=== PATIENT | female | born 1990 ===

== ENCOUNTER 2017-01-11 06:09 | Inpatient (IN) ==
[2017-01-11] MEDS ORDERED: LACTATED RINGERS 500 ML IV PRN (06:29)
[2017-01-11] MEDS ORDERED: TERBUTALINE 1 MG/1 ML VIAL SUBCUT PRN (06:29)
[2017-01-11] MEDS ORDERED: ONDANSETRON 4 MG/2 ML VIAL IV PRN ×2 (06:29→18:48)
[2017-01-11] MEDS ORDERED: MEPERIDINE 50 MG/1 ML VIAL IV PRN (06:29)
[2017-01-11] MEDS ORDERED: OXYTOCIN/LR 20 UNIT/1,000 ML BAG IV SCH (06:30)
[2017-01-11] MEDS: LACTATED RINGERS 1,000 ML IV SCH ×2 (06:50→11:59)
[2017-01-11 07:30] LABS: Basophils % 0.2 % (0.0-0.8); Eosinophils % 0.5 % (0.00-10.9); Hematocrit 42.2 VOL% (35.7-47.0); Hemoglobin 14.4 GM/DL (12.0-16.0); Immature Granulocytes % 0.3 %; Immature Granulocytes Absolute 0.02 #; Lymphocytes # 1.8 10*3/uL (1.4-4.0); Lymphocytes % 26.6 % (21.3-54.2); Mean Corpuscular HGB Conc 34.1 GM/DL (32-36); Mean Corpuscular Hemoglobin 30 PG (27-34); Mean Corpuscular Volume 88.8 FL (87-102); Mean Platelet Volume 11.6 FL (9.6-12.0); Monocytes # 0.4 10*3/uL (0.11-0.8); Monocytes % 6.1 % (1.7-12.7); Neutrophils # 4.4 10*3/uL (1.4-7.4); Neutrophils % 66.3 % (38.7-73.9); Platelet Count 199 T/CUMM (130-400); Red Blood Count 4.75 MC/CUMM (3.8-5.5); Red Cell Distribution Width 13.5 % (9.3-17.3); White Blood Count 6.6 T/CUMM (4-12)
--- NOTE | 2017-01-11 09:21 | OB/GYN History & Physical ---
History of Present Illness Chief complaint: For elective induction due to term History of present illness: Ms. Cline is a 26 year old female 2 para 1 living 1. Her PATIENCE is 01/15 for an estimated gestational age of 39 weeks and 2 days. The patient presents for elective induction of labor due to term . The risk and benefits of been thoroughly discussed with this patient and significant other, plan of care has been discussed with Dr. Henderson and all parties are in agreement plan. The patient received her care at the [facility] and the [facility] and she received routine care, her course was uneventful. labs: She is O+, rubella is immune, serologies nonreactive, hepatitis B negative, HIV negative, GBS culture is negative. Review of systems is negative with exception of the above. The patient has had a previous vaginal delivery of a liveborn that weighed 6 lbs. 9 oz. and she reported no complications with that . Home Medications Medication Instructions Recorded Confirmed Type Vits #90/Iron Fum/FA 1 tablet PO DAILY 01/11/17 01/11/17 History [ Formula Tablet] Allergies Allergy/AdvReac Type Severity Reaction Status Date / Time cephalexin [From Keflex] Allergy Unknown/Unable Verified 01/11/17 06:26 to obtain 12 point system: reviewed and no additional remarkable complaints except as stated Medical,Surgical,& Family Hx - Medical History Medical History: noncontributory Reproductive: No history of: Ectopic , Complication - Surgical History Surgical History: noncontributory Reproductive Surgeries: Patient denies;: Section - Family History Family History: Reports;: Family Diabetes (pgm), Family Heart Disease (mgm), Family Hypertension (pgm), Family Stroke (pgm) Denies;: Family Anesthesia Reaction, Family Hematology, Family Psychiatric Problems - Social History Smoking Status: Never smoker Frequency of Alcohol Use: None Type of Drug Use: None Marital Status: Single Lives With:: Significant Other Functional capacity: independent ambulation Exam ANIMAL CONTROL OFFICER - Constitutional General appearance: no acute distress - Antepartum / Post Antepartum Exam Cervix - Dilatation: 3 cm Effacement: 70% Station: -2 Rupture: Intact Presentation: Vertex Heart Rate: 140 Abdomen obstetrics: Present: bowel sounds normal Vagina: Present: normal moisture, discharge Uterus exam: Present: enlarged Anus/Rectum: Present: normal perianal skin - Respiratory Respiratory exam: Present: clear to auscultation bilaterally - Cardiovascular Cardiovascular exam: Present: regular rate and rhythm - GI/Abdominal GI/Abdominal exam: Present: normal bowel sounds, soft - Extremities Exam Extremities exam: Present: normal inspection - Back Exam Back exam: Present: normal inspection - Neurological Exam Neurological exam: Present: alert, oriented X3 - Psychiatric Psychiatric exam: Present: normal affect, normal mood - Skin Skin exam: Present: normal color, warm Assessment and Plan (1) Term Status: Acute Assessment and plan: Admit IV fluids IV Pitocin per protocol Artificial rupture membranes when appropriate Epidural anesthesia if desired Internal monitors if indicated Anticipate Current Visit: Yes Results - Labs CBC & BMP: 01/11/17 07:05
[2017-01-11] MEDS ORDERED: LACTATED RINGERS 1,000 ML IV ONE (09:39)
[2017-01-11] MEDS ORDERED: FAMOTIDINE 20 MG/2 ML VIAL IV ONE (09:39)
[2017-01-11] MEDS ORDERED: ePHEDrine 50 MG/ML AMP IV PRN (09:39)
[2017-01-11] MEDS ORDERED: fentaNYL 2 MCG/ROPIV 0.2% EPID 150 ML EPIDURAL SCH (09:39)
[2017-01-11] MEDS ORDERED: diphenhydrAMINE 50 MG/1 ML VIAL IV PRN (09:39)
[2017-01-11] MEDS ORDERED: CITRIC ACID/SODIUM CITRATE 30 ML UDCUP PO ONE (09:39)
[2017-01-11 14:00] LABS: Apearance,Urine CLEAR (Clear); Bilirubin,Urine Negative (Negative); Blood, Urine Negative (Negative); Glucose,Urine (UA) Negative (Negative); Ketones,Urine Negative (Negative); Mucus,Urine Occasional /LPF (Occasional); Nitrite,Urine Negative (Negative); Protein,Urine Negative; RBC,Urine <1 /HPF (0-4); Urine Color Yellow (Yellow); Urine Specific Gravity 1.006 (1.001-1.035); Urine Urobilinogen < 2.0 EU/DL (0.2-1.0); WBC,Urine <1 /HPF (0-6)
[2017-01-11] MEDS ORDERED: LIDOCAINE 1% 50 ML VIAL ONE (18:19)
[2017-01-11] MEDS ORDERED: miSOPROStol 200 MCG TABLET ONE (18:19)
[2017-01-11 18:37] LABS: Cord Arterial Blood HCO3 24.7 MMOL/L
[2017-01-11 18:40] LABS: Cord Venous Blood HCO3 22.9 MMOL/L; Cord Venous Blood PCO2 54.1 MMHG; Cord Venous Blood PO2 26.6 MMHG
--- NOTE | 2017-01-11 18:47 | Event Note ---
Delivery note Stage I Artificial rupture membranes IUPC IV Pitocin Epidural anesthetic heart tones category 1 with variable decelerations, Pitocin was discontinued for approximately an hour Restarted and patient continues to have a normal pattern category 1. Stage II LML episiotomy Vacuum extraction 2 with 1 pop-off Nuchal cord 2 Patient's knees were placed in the knee chest position a suprapubic pressure was applied The anterior shoulder was delivered without complications was delivered and passed to the nurses in attendance. Cord blood and cord gas was obtained Delivery time was 1825 Stage III Placenta was delivered without any complication 182 3 cord vessels Estimated blood loss was 300 cc Episiotomy was repaired without complications #2-0 Vicryl and 3-0 chromic Mother stable Apgars were 3 at 1 minute and 8 at 5 minutes Narcan was also given as well.
[2017-01-11] MEDS ORDERED: OXYTOCIN/LR 20 UNIT/1,000 ML BAG IV ONE (18:48)
[2017-01-11] MEDS ORDERED: BENZOCAINE 20%/MENTHOL 0.5% SPRAY 56 GM CAN TOP PRN (18:48)
[2017-01-11] MEDS ORDERED: MEASLES/MUMPS/RUBELLA VACCINE 0.5 ML VIAL SUBCUT ONE (18:48)
[2017-01-11] MEDS ORDERED: WITCH HAZEL PADS 100/JAR TOP PRN (18:48)
[2017-01-11] MEDS ORDERED: LANOLIN 50% CREAM 0.3 OZ TUBE TOP PRN (18:48)
[2017-01-11] MEDS ORDERED: ACETAMINOPHEN 325 MG TABLET PO PRN (18:48)
[2017-01-11] MEDS ORDERED: HYDROCORTISONE 2.5% RECTAL CREAM 30 GM TUBE TOP PRN (18:48)
[2017-01-11] MEDS ORDERED: BISACODYL 10 MG SUPP RECTAL PRN (18:48)
[2017-01-11] MEDS ORDERED: oxyCODONE/ACETAMINOPHEN 5-325 MG TABLET PO PRN ×2 (18:48)
[2017-01-11] MEDS ORDERED: RHO(D) IMMUNE GLOBULIN 300 MCG SYRINGE IM ONE (18:48)
[2017-01-11] MEDS ORDERED: DIPH/TET/ACEL PERT BOOSTER VACCINE 0.5 ML VIAL IM ONE (18:48)
[2017-01-11] MEDS: DOCUSATE SODIUM 100 MG CAPSULE PO SCH (21:45)
[2017-01-12] MEDS: IBUPROFEN 800 MG TABLET PO PRN ×3 (01:59→22:22)
[2017-01-12 06:03] LABS: Basophils % 0.2 % (0.0-0.8); Eosinophils % 0.2 % (0.00-10.9); Hematocrit 34.7 VOL% (35.7-47.0); Immature Granulocytes % 0.7 %; Immature Granulocytes Absolute 0.09 #; Lymphocytes # 2.1 10*3/uL (1.4-4.0); Lymphocytes % 16.3 % (21.3-54.2); Mean Corpuscular Hemoglobin 31 PG (27-34); Mean Corpuscular Volume 89.7 FL (87-102); Mean Platelet Volume 12.2 FL (9.6-12.0); Monocytes # 0.7 10*3/uL (0.11-0.8); Monocytes % 5.1 % (1.7-12.7); Neutrophils % 77.5 % (38.7-73.9); Red Blood Count 3.87 MC/CUMM (3.8-5.5); Red Cell Distribution Width 13.6 % (9.3-17.3)
[2017-01-12 06:16] LABS: Hemoglobin 11.8 GM/DL (12.0-16.0); Platelet Count 143 T/CUMM (130-400); White Blood Count 12.9 T/CUMM (4-12)
--- NOTE | 2017-01-12 07:28 | Anesthesia Post-Op ---
Anesthesia Post OP - Post Ansesthetic Evaluation Patient seen in post op: Yes Resp: within normal limits CV: within normal limits Mental: within normal limits Temp: within normal limits [id number]: within normal limits Nausea and Vomiting: within normal limits Pain: within normal limits
--- NOTE | 2017-01-12 08:54 | Physician Query Form ---
CLICK EDIT DOCUMENT TO SELECT QUERY ANSWER --> OK --> SIGN Hali Jean RN Clinical System Configuration Specialist W) [phone] (f) [phone] [email or web address] PROVIDERS: Make your selection(s) from the choices in EACH section by typing an "x" and enter comments in the comment section. Please use your independent medical judgment in providing your response. This request does not imply that any particular answer is desired or expected. CLINICAL INDICATORS: (Providers should not edit this section) Based on documentation of "Stage II LML episiotomy. Vacuum extraction x2 with one pop off" Please clarify the reason for vacuum assisted delivery Based on the above, could you clarify the appropriate diagnosis, if significant , that supports the above abnormalities and additional evaluation, monitoring, and/or treatment rendered: ( ) distress ( ) Maternal exhaustion ( ) Labor complication ( ) Attempted or failed delivery ( ) Other, please specify: ( ) Clinically unable to determine COMMENTS: PLEASE ALSO DOCUMENT RESPONSE IN PROGRESS NOTES AND/OR DISCHARGE SUMMARY Use of terms such as suspected, likely, or probable (associated with a specific diagnosis that is being evaluated, monitored, or treated as if it exists) are acceptable and can be restated in the discharge summary if not ruled out. MTDD
--- NOTE | 2017-01-12 14:39 | Progress Note ---
Family Medicine PN Sub Interval history: day #1 Status post vaginal Uterus is nice and firm, nontender Extremities well with no limits and neurologic grossly intact Assessment and plan patient will be discharged in the a.m. Exam (Progress Note) - Constitutional Vitals: Period Temp Pulse Resp BP Sys/Snyder Pulse Ox Last 24 Hr 97.0 F-97.9 F 62-97 18-20 106-147/58-89 97-98 Results - Labs CBC & BMP: 01/12/17 05:51 Quality Measures - VTE Contraindication to Pharmacological VTE Prophylaxis: Clinical assessment deems Pt at low risk, no prophalaxis needed
[2017-01-12] MEDS: DOCUSATE SODIUM 100 MG CAPSULE PO SCH ×2 (16:27→20:52)
[2017-01-13] MEDS: IBUPROFEN 800 MG TABLET PO PRN (04:40)
[2017-01-13 07:38] VITALS: BP 126/71
[2017-01-13] MEDS: DOCUSATE SODIUM 100 MG CAPSULE PO SCH (08:54)
--- NOTE | 2017-01-13 11:50 | Discharge Summary ---
Hospital Course - Hospital Course Hospital Course: Second day from a vaginal delivery Abdomen soft and nontender External genitalia were normal limits Extremities well within normal limits and neurologic grossly intact Patient will be discharged today in follow-up our office in 6 weeks Specialty Discharge - Follow Up or Referrals Discharge Plan - Discharge Data Condition at Discharge: Stable Discharge Diet: advance to your usual diet Activity: resume usual activities as tolerated Hygiene: may shower Driving: no restrictions Contact your physician if you experience:: fever over 101, Bleeding - Discharge Medications New Hydrocortisone 2.5% Rectal Cr [Anusol HC Cream] 1 applic TOP QID PRN #10 applic PRN Reason: Hemorrhoids Ibuprofen Tab [Motrin Tab] 800 mg PO Q6H PRN #30 tablet PRN Reason: Pain Moderate (4-7) oxyCODONE/ACETAMINOPHEN 5-325 [Percocet 5-325] 1 tablet PO Q6H PRN #14 tablet PRN Reason: Pain Severe (8-10) No Action Vits #90/Iron Fum/FA [ Formula Tablet] 1 tablet PO DAILY - Follow Up or Referral - Forms/Instructions Instructions: Perineal Care (DC), Vaginal Delivery (DC), Bleeding (DC) Exam - Constitutional Vitals: Period Temp Pulse Resp BP Sys/Snyder Pulse Ox Last 24 Hr 96.3 F-97.8 F 63-81 16-20 112-126/59-79 97-99 DS: Provider Date of admission: 01/11/17 06:29 Primary care physician: Saritha Guo MD Attending physician on admission: Tai Henderson MD Consults: 01/11/17 06:29 Consult to Anesthesiology [CONS] Routine Consulting Provider: Reason for Anesthesiology: Epidural Consult Comment: Epidural for pain managment 01/11/17 18:48 Consult to Porcelain Finish Sprayer [CONS] Routine Consult Porcelain Finish Sprayer: Breast Feeding Discharging clinician: Tai Henderson MD
== END 2017-01-13 13:20 | disposition home or self-care (01) | DRG 775 ==
LOC: N.LDOUT 06:09 → N.LD 06:10 → N.OB 01-12 16:33
PROVIDERS: ADMIT Obstetrics & Gynecology; ATTEND Obstetrics & Gynecology

== ENCOUNTER 2017-11-24 13:51 | Inpatient (IN) ==
[2017-11-24] MEDS ORDERED: ONDANSETRON 4 MG/2 ML VIAL IV PRN (14:11)
[2017-11-24] MEDS ORDERED: BUTORPHANOL 2 MG/ML VIAL IV PRN (14:11)
[2017-11-24] MEDS: LACTATED RINGERS 1,000 ML IV SCH ×2 (14:37→16:54)
[2017-11-24] MEDS ORDERED: hydrOXYzine HCL 25 MG/1 ML VIAL IM PRN (14:40)
[2017-11-24] MEDS ORDERED: PROMETHAZINE 25 MG/1 ML VIAL IM ONE (14:40)
[2017-11-24] MEDS ORDERED: ePHEDrine 50 MG/ML AMP IV PRN (14:40)
[2017-11-24] MEDS ORDERED: diphenhydrAMINE 50 MG/1 ML VIAL IV PRN ×2 (14:40)
[2017-11-24] MEDS ORDERED: CITRIC ACID/SODIUM CITRATE 30 ML UDCUP PO ONE (14:40)
[2017-11-24] MEDS ORDERED: FAMOTIDINE 20 MG/2 ML VIAL IV ONE (14:40)
[2017-11-24 14:46] LABS: Basophils % 0.3 % (0.0-0.8); Eosinophils % 0.4 % (0.00-10.9); Hematocrit 39.7 VOL% (35.7-47.0); Hemoglobin 13.7 GM/DL (12.0-16.0); Immature Granulocytes % 0.4 %; Immature Granulocytes Absolute 0.03 #; Lymphocytes # 1.3 10*3/uL (1.4-4.0); Lymphocytes % 16.2 % (21.3-54.2); Mean Corpuscular HGB Conc 34.5 GM/DL (32-36); Mean Corpuscular Hemoglobin 31 PG (27-34); Mean Corpuscular Volume 90.4 FL (87-102); Mean Platelet Volume 10.8 FL (9.6-12.0); Monocytes # 0.4 10*3/uL (0.11-0.8); Monocytes % 5.4 % (1.7-12.7); Neutrophils % 77.3 % (38.7-73.9); Platelet Count 196 T/CUMM (130-400); Red Blood Count 4.39 MC/CUMM (3.8-5.5); Red Cell Distribution Width 13.1 % (9.3-17.3); White Blood Count 7.7 T/CUMM (4-12)
[2017-11-24] MEDS ORDERED: fentaNYL 2 MCG/ROPIV 0.2% EPID 150 ML EPIDURAL SCH (15:00)
[2017-11-24 15:16] LABS: Alkaline Phosphatase 146 U/L (45-117); Aspartate Amino Transferase 17 U/L (0-37); Calcium 8.3 MG/DL (8.5-10.1)
[2017-11-24 15:17] LABS: Alanine Aminotransferase 16 U/L (13-56); Albumin 2.2 G/DL (3.4-5.0); Bilirubin,Total < 0.39 MG/DL (0.2-1.0); Blood Urea Nitrogen 8 MG/DL (7-18); Glucose 76 MG/DL (74-106); Osmolality,Calculated 269.8 MOS/KG (273-304); Potassium 4.2 MMOL/L (3.5-5.1); Sodium 137 MMOL/L (136-145); Total Protein 6.3 G/DL (6.4-8.3); Uric Acid 3.9 MG/DL (2.6-6.0)
[2017-11-24] MEDS: OXYTOCIN/LR 20 UNIT/1,000 ML BAG IV SCH ×2 (16:57→23:38)
[2017-11-24] MEDS ORDERED: LIDOCAINE 1% 50 ML VIAL ONE (18:29)
[2017-11-24] MEDS ORDERED: miSOPROStol 200 MCG TABLET ONE (18:29)
[2017-11-24] MEDS ORDERED: MEASLES/MUMPS/RUBELLA VACCINE 0.5 ML VIAL SUBCUT ONE (23:32)
[2017-11-24] MEDS ORDERED: LANOLIN 50% CREAM 0.3 OZ TUBE TOP PRN (23:32)
[2017-11-24] MEDS ORDERED: HYDROCORTISONE 2.5% RECTAL CREAM 30 GM TUBE TOP PRN (23:32)
[2017-11-24] MEDS ORDERED: BISACODYL 10 MG SUPP RECTAL PRN (23:32)
[2017-11-24] MEDS ORDERED: BENZOCAINE 20%/MENTHOL 0.5% SPRAY 56 GM CAN TOP PRN (23:32)
[2017-11-24] MEDS ORDERED: ACETAMINOPHEN 325 MG TABLET PO PRN (23:32)
[2017-11-24] MEDS ORDERED: DIPH/TET/ACEL PERT BOOSTER VACCINE 0.5 ML VIAL IM ONE (23:32)
[2017-11-24] MEDS ORDERED: WITCH HAZEL PADS 100/JAR TOP PRN (23:32)
[2017-11-24] MEDS ORDERED: RHO(D) IMMUNE GLOBULIN 300 MCG SYRINGE IM ONE (23:32)
[2017-11-24] MEDS: DOCUSATE SODIUM 100 MG CAPSULE PO SCH (23:53)
[2017-11-24] MEDS: IBUPROFEN 800 MG TABLET PO SCH (23:54)
[2017-11-25 05:46] LABS: Basophils % 0.3 % (0.0-0.8); Eosinophils # 0.1 10*3/uL (0.0-0.87); Eosinophils % 0.9 % (0.00-10.9); Hematocrit 36.5 VOL% (35.7-47.0); Hemoglobin 12.5 GM/DL (12.0-16.0); Immature Granulocytes % 0.3 %; Immature Granulocytes Absolute 0.03 #; Lymphocytes # 2.2 10*3/uL (1.4-4.0); Lymphocytes % 22.6 % (21.3-54.2); Mean Corpuscular HGB Conc 34.2 GM/DL (32-36); Mean Corpuscular Hemoglobin 32 PG (27-34); Mean Corpuscular Volume 92.6 FL (87-102); Mean Platelet Volume 12.5 FL (9.6-12.0); Monocytes # 0.5 10*3/uL (0.11-0.8); Monocytes % 5.2 % (1.7-12.7); Neutrophils # 6.9 10*3/uL (1.4-7.4); Neutrophils % 70.7 % (38.7-73.9); Platelet Count 126 T/CUMM (130-400); Red Blood Count 3.94 MC/CUMM (3.8-5.5); Red Cell Distribution Width 12.8 % (9.3-17.3); White Blood Count 9.7 T/CUMM (4-12)
[2017-11-25] MEDS: IBUPROFEN 800 MG TABLET PO SCH ×2 (06:43→17:37)
[2017-11-25] MEDS: DOCUSATE SODIUM 100 MG CAPSULE PO SCH ×2 (08:47→21:34)
[2017-11-26] MEDS: IBUPROFEN 800 MG TABLET PO SCH ×3 (01:05→18:43)
[2017-11-26 13:34] VITALS: BP 111/71
[2017-11-26] MEDS: DOCUSATE SODIUM 100 MG CAPSULE PO SCH (18:44)
== END 2017-11-26 18:15 | disposition home or self-care (01) | DRG 775 ==
LOC: N.LDOUT 13:51 → N.LD 13:54 → N.OB 23:34
PROVIDERS: ADMIT Obstetrics & Gynecology; ATTEND Obstetrics & Gynecology